=== PATIENT | male | born 1955 | race Caucasian/White ===

== ENCOUNTER 2017-01-26 15:56 | Emergency (ER) | payer MEDICARE, MEDICAID ==
[~2017-01-26] VITALS: Ht 182.9 cm; Wt 104.5 kg
[~2017-01-26 15:56] MED LIST: ASPI-351 PO; CYCL5TAB11 PO; GLU500 PO; MOT200T1 PO; SENN-60 PO; ZES20 PO; levamir SUBQ; oxycodone PO
[2017-01-26 15:59] VITALS: BP 144/68; PULSE 77; RESP 12; O2SAT 94
[2017-01-26] MEDS ORDERED: 0.9% Sodium Chloride 1,000 ML IV ONE (16:08)
--- NOTE | 2017-01-26 16:08 | ED.REPORT ---
HPI-General Illness Date of Service Jan 26, 2017 ED Provider: Dr. Nir Mohr The patient is a 61 year old male w/ a hx of DM and HTN who presents to the ED due to high blood sugar. He states that he had some lightheadedness earlier today and checked his blood sugar; noted that it was very high and decided to come to the ED. Aside from some mild lightheadedness and feeling "off", denies any other associated symptoms.. Pt states that he took his insulin and normal medication this morning. Blood sugar is 585 upon arrival to the ED. He denies nausea, vomiting, diarrhea, abdominal pain, chest pain, dysuria, incontinence, urinary frequency, urinary urgency, chills, and fever. No other complaints at this time. Nursing Notes Stated Complaint: Hyperglycemia Chief Complaint: General Complaint Nursing Notes Reviewed: Yes Allergies: Coded Allergies: No Known Allergies (Verified , 01/26/17) Scheduled Atorvastatin Calcium (Atorvastatin Calcium) 40 Mg Tablet 40 MG PO HS Insuln Asp Prt/Insulin Aspart (NovoLOG 70/30 U100 Insulin Flexpen) 100 Unit/Ml Unit 30 UNIT SUBQ BID Lisinopril (Lisinopril) 40 Mg Tablet 40 MG PO DAILY Metformin HCl (Metformin HCl ER) 1,000 Mg [id number] 1,000 MG PO BID Metoprolol Tartrate (Metoprolol Tartrate) 50 Mg Tablet 50 MG PO BID General Time Seen by MD: 16:07 Chief Complaint Other (high blood sugar) Hx Obtained From: Patient Arrived By: Walk-in Sudden in Onset?: Yes Onset Occurred: 13 - 16 hours ago Symptom Duration: Since onset Severity: Current: No pain currently Pertinent Negative: Pt denies other symptoms Context Related History: Reports Diabetes mellitus Recent Healthcare: No recent doctor visit, No recent hospitalization Similar Sx Previous: No Past Medical History Past Medical History Sleep apnea Reports: Diabetes mellitus, Hypertension Past Surgical History None Family History Reports: Hypertension Smoking History Former Smoker Social History Alcohol Use: Denies alcohol use Drug Use: Denies drug use Other Social History: Local resident Ambulatory Status Independent Review of Systems high blood sugar Full Review of Systems Constitutional: Denies: Chills, Fever Eyes: Reports: Blurred left, Blurred right Ears / Nose / Throat: Denies: Throat pain Respiratory: Denies: Shortness of breath Cardiovascular: Denies: Chest pain GI: Denies: Diarrhea, Nausea, Vomiting Male: Denies Dysuria, Denies Incontinence, Denies Urinary frequency, Denies Urinary urgency Musculoskeletal: Denies: Back pain, Joint swelling Endocrine: Reports: Polyuria Skin: Denies Rash Neurologic: Reports: Lightheaded, Denies: Change LOC, Confusion, Focal weakness, Headache, Problem walking, Seizure, Slurred speech Psychiatric: Denies: Change mental status Complete sys rev & neg: except as marked. Physical Exam Nursing note and vitals reviewed. Constitutional: Well-developed, well-nourished obese male sitting up in bed. Well-appearing. Not diaphoretic. Head: Normocephalic and atraumatic. Mouth/Throat: Oropharynx is clear and moist. No oropharyngeal exudate. Eyes: EOM are normal. Pupils are equal, round, and reactive to light. Neck: Supple, no tracheal deviation. Cardiovascular: Normal rate, regular rhythm. Equal and intact distal pulses throughout. Pulmonary/Chest: Effort normal and breath sounds normal. No respiratory distress. Abdominal: Soft. No distension. There is no tenderness, rebound, or guarding. Bowel sounds present. Musculoskeletal: Range of motion grossly intact, moving all extremities. No edema or tenderness appreciated. Neurological: AOx3. Grossly nonfocal exam. Strength and sensation intact and equal to bilateral upper and lower extremities. Normal finger to nose testing Skin: Warm and dry, no rashes or pallor appreciated. Psychiatric: Appropriate mood and affect. Behavior appears normal. Vital Signs Vital Signs Date Time Temp Pulse Resp B/P Pulse Ox O2 Delivery O2 Flow Rate FiO2 01/26/17 21:57 36.8 79 20 135/80 98 Room Air 01/26/17 20:40 74 16 128/64 100 Room Air 01/26/17 19:40 88 17 141/63 95 Room Air 01/26/17 15:59 36.7 77 12 144/68 94 Room Air Initial VS: Reviewed Interpretation & Diagnostics Lab Results Interpretation Result Diagram: 01/26/17 1614 01/26/17 1614 Test 01/26/17 16:14 01/26/17 16:40 01/26/17 18:08 White Blood Count 9.4th/mm3 (3.8-10.1) Red Blood Count 5.77mil/mm3 (4.40-5.80) Hemoglobin 17.6g/dL (13.8-17.2) Hematocrit 47.4% (41.0-50.0) Mean Corpuscular Volume 82.1fL (81-100) Mean Corpuscular Hemoglobin 30.5pg (27.0-35.0) Mean Corpuscular Hemoglobin Concent 37.1% (32.0-37.0) Red Cell Distribution Width 12.7% (12.3-15.4) Platelet Count 225bil/L (150-400) Neutrophils (%) (Auto) 64.1% (40-74) Lymphocytes (%) (Auto) 26.6% (14-46) Monocytes (%) (Auto) 7.2% (4-12) Eosinophils (%) (Auto) 1.5% (0-5) Basophils (%) (Auto) 0.4% (0-3) Prothrombin Time 9.8sec (8.1-12.5) Prothromb Time International Ratio 0.92ratio Sodium Level 131mEq/L (134-144) Potassium Level 4.2mEq/L (3.5-5.2) Chloride Level 90mEq/L (97-108) Carbon Dioxide Level 21mmol/L (18-29) Blood Urea Nitrogen 13mg/dL (8-27) Creatinine 0.72mg/dL (0.76-1.27) Estimat Glomerular Filtration Rate 118mL/min (>59) Glucose Level 565mg/dL (60-99) Calcium Level 9.5mg/dL (8.5-10.1) Magnesium Level 1.7mg/dL (1.6-2.6) Total Bilirubin 0.9mg/dL (0.0-1.2) Aspartate Amino Transf (AST/SGOT) 23U/L (0-50) Alanine Aminotransferase (ALT/SGPT) 24U/L (0-44) Alkaline Phosphatase 124U/L (25-160) Total Protein 6.9g/dL (6.4-8.4) Albumin 4.1g/dL (3.4-5.0) Lipase 83U/L (13-60) Ketones Negative (Negative) Lactic Acid Level 2.4mmol/L (0.4-2.0) Urine Color Yellow (YELLOW) Urine Appearance Clear (CLEAR,HAZY) Urine pH 5.0 (5.0-8.0) Urine Specific [place] 1.005 (1.003-1.035) Urine Protein Negativemg/dL (NEG,TRACE) Urine Glucose (UA) 1000mg/dL (NEGATIVE) Urine Ketones Tracemg/dL (NEGATIVE) Urine Occult Blood Negative (NEGATIVE) Urine Nitrite Negative (NEGATIVE) Urine Bilirubin Negative (NEGATIVE) Urine Urobilinogen Normalmg/dL (NORMAL) Urine Leukocyte Esterase Negative (NEGATIVE) Urine RBC 0-2/hpf (0-2) Urine WBC 0-5/hpf (0-5) Urine Epithelial Cells None/hpf (NONE-MOD) Urine Crystals None seen (NONE SEEN) Urine Bacteria None/hpf (NONE-FEW) Urine Hyaline Casts None/lpf (NONE) Urine Granular Casts None seen (NONE SEEN) Urine Waxy Casts None seen (NONE SEEN) Urine Red Blood Cell Casts None seen (NONE SEEN) Urine White Blood Cell Casts None seen (NONE SEEN) Urine Mucus None seen (None Seen) Urine Trichomonas None seen (NONE SEEN) Urine Yeast None (NONE SEEN) Urinalysis Comment None Urine Culture Reflexed Not indicated Lab Results Interpretation: LABS: Sodium: 131 Glucose: 565 Lipase: 83 Lactic Acid: 2.4 Ketones: negative UA with no evidence of UTI Rest of CBC and CMP grossly within limits Blood Gas: pH 7.4 Bicarb 25.3 Reassuring no acidosis ECG Interpretation ECG Interpretation: left anterior fascicular block Time: 16:32 Interpreted by: ED physician Normal ECG Interpretation: Normal sinus rhythm (rate 76) Re-Eval/Medical Decision Med Decision/Clinical Course In summary, 61-year-old male with a history of diabetes presenting to the ED for evaluation of hyperglycemia noted earlier today. Patient has had some lightheadedness and feeling a little bit shaky at times, however denies any other symptoms, including nausea, vomiting, abdominal pain. Differential includes DKA, HHS, stress reaction to illness, medication noncompliance. Initial laboratory studies noted for a sodium of 131 (corrected 135), glucose 565, lipase 83, lactic acid 2.4, serum ketones negative, UA with no evidence of UTI; rest of CBC and CMP grossly within normal limits. Vital signs grossly within normal limits. EKG demonstrates sinus rhythm with no acute ischemic changes. Blood gas with a pH of 7.4, bicarbonate of 25.3; not consistent with acidosis. Normal mental status. Patient given several liters of IV fluids here in the ED; upon recheck, blood glucose in the 100s. Patient endorses improvement in symptoms and has good outpatient follow-up. Given that there is no evidence of acidosis, patient appears well, tolerating by mouth with normal mental status, as well as his improvement in symptoms, reasonable to discharge home with very careful return precautions, PCP follow-up tomorrow. Patient agreeable to the plan as stated, no further questions. Time of Eval: 20:50 Re-Evaluation/Progress Note: Pt rechecked. He is much improved. Plan for discharge. Pt understands and agrees with plan. F/U and RTER warnings given. All questions addressed. Counseled Regarding: Diagnosis, Lab results, Need for follow-up, When/why to return to ED Discharge & Departure Primary Impression: Hyperglycemia Disposition: Home Discharge Condition All VS Reviewed: Yes Condition: Stable Patient Instructions: Diabetic Hyperglycemia (ED) Additional Instructions: Thank you for entrusting us with your care today. Continue to carefully monitor your blood sugar. Drink plenty of water and stay well hydrated. Follow up with your primary care physician in the next 1-2 days for further evaluation. Do not hesitate to return to the Emergency Department if you experience any new or worsening symptoms. I hope you feel better soon! Referrals: William Jean-Baptiste DO (PCP) [place] Attestation Portion of this note were transcribed by Samina Sharif. I, Dr. Mohr, personally performed the history, physical exam, and medical decision-making: I reviewed and confirmed the accuracy for the information in the transcribed note. Signed by: jose david St, 01/26/17 2200 copies to: William Jean-Baptiste William B MD Jan 26, 2017 16:08 Samina Sharif Jan 26, 2017 18:32
[2017-01-26 16:17] LABS: MONOCYTES % (AUTO) 7.2 % (4-12); Mean Corpuscular Volume 82.1 fL (81-100)
[2017-01-26 16:20] LABS: BASOPHILS % (AUTO) 0.4 % (0-3); EOSINOPHILS % (AUTO) 1.5 % (0-5); Mean Corpuscular Hemoglobin 30.5 pg (27.0-35.0); NEUTROPHILS % (AUTO) 64.1 % (40-74); Platelet Count 225 bil/L (150-400)
[2017-01-26 16:33] LABS: INR 0.92 ratio
[2017-01-26 16:40] LABS: Lipase 83 U/L (13-60); Magnesium 1.7 mg/dL (1.6-2.6)
[2017-01-26 18:20] LABS: APPEARANCE,URINE CLEAR (CLEAR,HAZY); COLOR,URINE YELLOW (YELLOW)
[2017-01-26 18:21] LABS: OCCULT BLOOD,URINE NEGATIVE (NEGATIVE); UROBILINOGEN,URINE NORMAL (NORMAL)
[2017-01-26 19:40] VITALS: BP 141/63; PULSE 88; RESP 17; O2SAT 95
--- NOTE | 2017-01-26 19:53 | ABG ---
DateTimeAnalyzed 19:46:38 -_ pH ____7.395 - pCO2 ___41.3__ -mmHg pO2 ___51.0__ -mmHg HCO3- ___25.3__ -mmol/L 22.0 26.0 ABE ____0.3__ -mmol/L tHb ___16.5__ -g/dL O2Hb ___86.4__ -% COHb ____1.5__ -% 1.5 MetHb ____0.0__ -% sO2 ___87.6__ -% FIO2 ___21.0__ -% Drawn By MK - Date/Time Notified____ 19:53:00 -_ K+ ____3.5__ -mmol/L tO2 ___20.0__ -Vol% Ángel test _Positive -
[2017-01-26] MEDS ORDERED: Lactated Ringer's 1,000 ML IV ONE (20:05)
[2017-01-26] MEDS ORDERED: Potassium Chloride Inj 30 MEQ in Dextrose 5% 500 ML IV ONE (20:10)
[2017-01-26] MEDS ORDERED: METF-778 PO (20:37)
[2017-01-26] MEDS ORDERED: INSU3INS3 SUBQ (20:37)
[2017-01-26] MEDS ORDERED: ATOR40TA69 PO (20:37)
[2017-01-26] MEDS ORDERED: METO50TA3 PO (20:37)
[2017-01-26] MEDS ORDERED: LISI40TA PO (20:37)
[2017-01-26 20:40] VITALS: BP 128/64; PULSE 74; RESP 16; O2SAT 100
[2017-01-26 21:57] VITALS: BP 135/80; PULSE 79; RESP 20; O2SAT 98
== END 2017-01-26 21:50 | disposition home or self-care (01) ==
LOC: SED 15:56
DX: E11.65 Type 2 diabetes mellitus with hyperglycemia (principal); I10 Essential (primary) hypertension; R42 Dizziness and giddiness; Z87.891 Personal history of nicotine dependence; Z79.4 Long term (current) use of insulin; Z79.84 Long term (current) use of oral hypoglycemic drugs
CPT/HCPCS: 36415; 80053; 81000; 82009; 82375; 82803; 82948; 83605; 83690; 83735; 85025; 85610; 93005; 96365; 99285; J3480; J7030; J7060; J7120